=== PATIENT | male | born 1995 | race Caucasian/White ===

== ENCOUNTER → 2017-05-15 14:53 | Emergency (ER) | payer SELFPAY ==
--- NOTE | 2017-05-28 15:16 | ED ---
Milind Joe Benjamin, scribed for Toni Gamez MD on 05/15/17 at 1703 . Substance Abuse/Use - HPI Summary HPI Summary: 21yo male FERNANDO to ED from home alf for ingesting alcohol and his rx meds together. Pt reports taking his sleep rx med remeron and alcohol together around 12:30 today. Pt denies doing it for suicidal purposes, just by mistake. - History Of Current Complaint Chief Complaint: EDGeneral Stated Complaint: ETOH Time Seen by Provider: 05/15/17 15:34 Hx Obtained From: Patient Ingestion History: Type/Name Of Drug - remeron and alcohol together Overdose Characteristics: Oral Timing Of Abuse: Binge Use Severity Initially: Moderate Severity Currently: Mild Character: Stuporous Aggravating Factor(s): Nothing Alleviating Factor(s): Nothing Associated Signs And Symptoms: Negative - Allergies/Home Medications Allergies/Adverse Reactions: Allergies Allergy/AdvReac Type Severity Reaction Status Date / Time No Known Allergies Allergy Verified 05/15/17 15:18 PMH/Surg Hx/FS Hx/Imm Hx Infectious Disease History: No Infectious Disease History: Denies: Traveled Outside the [place] in Last 30 Days Review of Systems Negative: Fever, Chills Negative: Erythema Negative: Sore Throat Negative: Chest Pain Negative: Shortness Of Breath, Cough Negative: Abdominal Pain, Nausea Negative: dysuria, hematuria Negative: Edema Negative: Rash Neurological: Negative Psychological: Normal All Other Systems Reviewed And Are Negative: Yes Physical Exam Triage Information Reviewed: Yes Vital Signs On Initial Exam: Initial Vitals Temp Pulse Resp BP Pulse Ox 97.1 F 95 22 117/67 95 05/15/17 15:08 05/15/17 15:08 05/15/17 15:08 05/15/17 15:08 05/15/17 15:08 Vital Signs Reviewed: Yes Appearance: Positive: Well-Appearing, No Pain Distress, Well-Nourished Skin: Positive: Warm, Skin Color Reflects Adequate Perfusion Head/Face: Positive: Normal Head/Face Inspection Eyes: Positive: Normal ENT: Positive: Normal ENT inspection Neck: Positive: Supple, Nontender Respiratory/Lung Sounds: Positive: Clear to Auscultation, Breath Sounds Present. Negative: Rales, Rhonchi, Wheezes Cardiovascular: Positive: RRR, Pulses are Symmetrical in both Upper and Lower Extremities. Negative: Murmur Abdomen Description: Positive: Nontender, Soft. Negative: Distended, Guarding Musculoskeletal: Positive: Strength/ROM Intact. Negative: Edema Left, Edema Right Neurological: Positive: Alert, Oriented to Person Place, Time Psychiatric: Positive: Affect/Mood Appropriate Diagnostics - Vital Signs Vital Signs Temp Pulse Resp BP Pulse Ox 05/15/17 16:13 97.1 F 95 22 117/67 96 05/15/17 15:08 97.1 F 95 22 117/67 95 - Laboratory Lab Statement: Any lab studies that have been ordered have been reviewed, and results considered in the medical decision making process. Course/Dx - Course Course Of Treatment: Reviewed pts medication and allergy lists. - Diagnoses Provider Diagnoses: Drug-alcohol interaction Discharge - Discharge Plan Condition: Stable Disposition: HOME Patient Education Materials: Alcohol Intoxication (ED), Polysubstance Abuse (ED ) Referrals: [facility] REFERRAL [Outside] No Primary Care Phys,NOPCP [Primary Care Provider] - The documentation as recorded by the Milind haro Benjamin accurately reflects the service I personally performed and the decisions made by me, Toni Gamez MD.
== END | disposition home or self-care (01) ==
LOC: ED 14:53
DX: T51.91XA Toxic effect of unspecified alcohol, accidental (unintentional), initial encounter (principal); X58.XXXA Exposure to other specified factors, initial encounter
CPT/HCPCS: 99282